=== PATIENT | female | born 1960 | race Caucasian/White ===

== ENCOUNTER 2019-12-11 10:55 | Outpatient (CLI) | payer BC, SELFPAY ==
[2019-12-11 15:41] LABS: Anion Gap 11 mmol/L (8-16); Blood Urea Nitrogen 11 mg/dL (7-17); Calcium 9.2 mg/dL (8.4-10.2); Carbon Dioxide 23 mmol/L (22-30); Chloride 104 mmol/L (98-107); Estimated Glomerular Filt Rate 33; Glucose 91 mg/dL (65-105); Potassium 4.2 mmol/L (3.4-5.0); Sodium 138 mmol/L (137-145)
== END 2019-12-11 10:56 | disposition home or self-care (01) ==
LOC: ANHLAB 11:00
PROVIDERS: PCP Registered Nurse; Visit Provider Internal Medicine Cardiovascular Disease
DX: I10 Essential (primary) hypertension (principal)
CPT/HCPCS: 36415; 80048

== ENCOUNTER → 2020-09-16 11:32 | Outpatient (CLI) | payer BC, SELFPAY ==
--- NOTE | ~2020-09-16 | XR_ITS ---
EXAMINATION: XR knee RT 2V DATE: 09/16/2020 11:46 INDICATION: Right knee pain. TECHNIQUE: 2 views of right knee standing were obtained. COMPARISON: None. FINDINGS: Bone alignment is normal. No fracture. There is mild tricompartmental osteoarthritis. There is a moderate-sized knee joint effusion. IMPRESSION: 1. Mild right knee osteoarthritis. 2. Moderate-sized right knee joint effusion. Reviewed, dictated and finalized at location B.
--- NOTE | ~2020-09-16 | XR_ITS ---
EXAMINATION: XR knee LT 2V DATE: 09/16/2020 11:46 INDICATION: Left knee pain. TECHNIQUE: 2 views of left knee standing were obtained. COMPARISON: None. FINDINGS: Bone alignment is normal. No fracture. There is mild tricompartmental osteoarthritis. No kn ee joint effusion. IMPRESSION: 1. Mild left knee osteoarthritis. Reviewed, dictated and finalized at location B.
== END ==
PROVIDERS: Visit Provider Nurse Practitioner Family
DX: M17.0 Bilateral primary osteoarthritis of knee (principal); M25.461 Effusion, right knee
CPT/HCPCS: 73560

== ENCOUNTER → 2021-09-26 07:50 | Outpatient (CLI) | payer BC, SELFPAY ==
--- NOTE | ~2021-09-26 | MR_ITS ---
EXAMINATION: MR lumbar spine wo con DATE: 09/26/2021 08:21 INDICATION: Low back pain TECHNIQUE: Magnetic resonance imaging (MRI) of the lumbar spine was performed without intravenous con trast. Sequences included sagittal T2-weighted FSE, sagittal T2-weighted FS FSE, sagittal T1-weighted FSE, and axial T2-weighted FSE. COMPARISON: 07/12/2018 FINDINGS: Chronic L5-S1 anterior spinal fusion with anterior plate and screw fixation and solid osseous bridgin g across the disc space. 3 mm anterolisthesis L4 on L5. Vertebral body heights are normal. Moderate d isc height loss at T9-T10 and mild disc height loss at T11-T12 and L4-L5. Fibrovascular degenerative endplate changes at both sides of the anterior T11-T12 disc space. Marrow signal is otherwise normal. The conus medullaris terminates at L1-L2. There is normal signal in the caudal spinal cord. 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 Tarlov cyst at the left S2 neural foramen. Paravertebral soft tissues a re otherwise unremarkable. The following disc levels are specifically discussed: T11-T12: Disc is bulging. There is moderate bilateral facet joint osteoarthritis. There is no neural foraminal stenosis. There is mild central canal stenosis. T12-L1: Disc is minimally bulging. There is moderate left and mild right facet joint osteoarthritis. There is mild left neural foraminal stenosis. There is no central canal stenosis. L1-L2: Disc is minimally bulging. There is mild to moderate bilateral facet joint osteoarthritis. The re is mild bilateral neural foraminal stenosis. There is no central canal stenosis. L2-L3: Disc is mildly bulging with superimposed annular fissure. There is mild to moderate bilateral facet joint osteoarthritis. There is mild right and mild to moderate left neural foraminal stenosis. There is mild central canal stenosis. L3-L4: Disc is mildly bulging with annular fissure. There is moderate bilateral facet joint osteoarth ritis. There is mild right and moderate left neural foraminal stenosis. There is no central canal leila nosis. L4-L5: Disc is bulging There is severe bilateral facet joint osteoarthritis. There is mild bilateral neural foraminal stenosis. There is no central canal stenosis. L5-S1: Anterior spinal fusion. There is severe bilateral facet joint osteoarthritis. There is mild bi lateral neural foraminal stenosis. There is no central canal stenosis. IMPRESSION: 1. No significant change in mild lumbar spondylosis. 2. Instrumented L5-S1 anterior spinal fusion. Reviewed, dictated and finalized at location B.
== END ==
PROVIDERS: PCP Registered Nurse; Visit Provider Nurse Practitioner Family
DX: M54.50 Low back pain, unspecified (principal); Z98.1 Arthrodesis status
CPT/HCPCS: 72148

== ENCOUNTER 2023-02-10 14:02 | Outpatient (CLI) | payer BC, SELFPAY ==
--- NOTE | ~2023-02-10 | CT_ITS ---
EXAMINATION:CT lung screening DATE: 02/10/2023 14:33 INDICATION: Personal history of nicotine dependence. Smoker who quit 10 years ago with 30 pack year h istory. TECHNIQUE: Computed tomography (CT) of the chest was performed without intravenous contrast. Automate d exposure control and iterative reconstruction technique were employed. The dose-length product (DLP ) was 220.56 mGy-cm. COMPARISON: Chest CT 07/15/15 FINDINGS: There is mild emphysema. There is a 3 mm nodule in right upper lobe. There is a 3 mm nodule in right upper lobe. There is mild atelectasis bilaterally. There is a 5 mm nodule in left lower lob e. No pleural effusion. Aortic atherosclerosis is noted. The heart size is normal. No pericardial eff usion. There are coronary artery calcifications. There is a right posterior diaphragmatic hernia cont aining fat. There is a 13 mm cyst in left kidney. There is moderate thoracic spondylosis. IMPRESSION: 1. Lung-RADS category 2: Benign appearance or behavior. Continue annual screening with noncontrast lo w-dose chest CT in 12 months. Reviewed, dictated and finalized at location E. IMPRESSION: 1. Lung-RADS category 2: Benign appearance or behavior. Continue annual screeni ng with noncontrast low-dose chest CT in 12 months.
== END 2023-02-10 14:03 | disposition home or self-care (01) ==
PROVIDERS: PCP Registered Nurse; Visit Provider Registered Nurse
DX: Z12.2 Encounter for screening for malignant neoplasm of respiratory organs (principal); F17.211 Nicotine dependence, cigarettes, in remission
CPT/HCPCS: 71271

== ENCOUNTER 2024-07-05 08:09 | Outpatient (CLI) | payer OTHER, SELFPAY ==
--- NOTE | ~2024-07-05 | MR_ITS ---
Corrected Report Correction to Ordering Provider 07/07/2024 [facility] This report was recreated on 07/07/2024. Original report was signed by Alton Sweeney M.D. on 07/05/2024 11:51 CDT. MRI of the lumbar spine Clinical History: Back pain Technique: Axial T2-weighted images, and sagittal T1-weighted, T2-weighted, and STIR images were acquired. Following intravenous administration of 15 cc ProHance gadolinium, T1-weighted fat-sat imaging was performed in the axial and sagittal planes. COMPARISON: 09/26/2021 Findings: Stable anterior and interbody fusion from L5 through S1. 4 mm anterolisthesis of L4 over L5 present. No suspicious bone marrow signal reality seen. No acute fracture. Osseous alignment is essentially unchanged. At L1-L2, there is no disc bulge or herniation. There is moderate facet arthropathy. No central canal stenosis or neural foraminal narrowing. At L2-L3, there is minimal disc desiccation. No significant disc bulge or herniation. There is moderate facet arthropathy. No central canal stenosis. There is mild bilateral neural foraminal narrowing. At L3-L4, there is moderate facet arthropathy with mild disc desiccation. No central canal stenosis. There is mild to moderate left neural foraminal narrowing. Right neural foramen preserved. At L4-L5, there is disc bulge and severe facet arthropathy. There is mild central canal stenosis. There is moderate left neural foraminal narrowing. There is mild right neural foraminal narrowing. At L5-S1, there is no disc bulge or herniation. There is moderate facet arthropathy. No central canal stenosis. Probable mild bilateral neural foraminal narrowing. Paravertebral soft tissues are unremarkable. No abnormal postcontrast enhancement identified. Impression: Stable posterior changes from L5 through S1. Stable degenerative spondylosis. Reviewed, dictated and finalized at location . MTDD Impression: Stable posterior changes from L5 through S1. Stable degenerative spondylosis.
== END 2024-07-05 08:10 | disposition home or self-care (01) ==
PROVIDERS: PCP Nurse Practitioner Family; Visit Provider Nurse Practitioner Family
DX: M47.816 Spondylosis without myelopathy or radiculopathy, lumbar region (principal); M96.1 Postlaminectomy syndrome, not elsewhere classified; Z98.1 Arthrodesis status
CPT/HCPCS: 72158; A9579